=== PATIENT | female | born 1995 | race Hispanic/Latino ===

== ENCOUNTER → 2023-05-10 13:42 | Outpatient (CLI) | payer OTHER, SELFPAY ==
[2023-05-10 19:34] LABS: Creatine Kinase 51 U/L (30-135)
[2023-05-10 20:19] LABS: Vitamin B12 Reflex MMA if <400 295 pg/mL (239-931)
[2023-05-17 02:36] LABS: Methylmalonic Acid,Serum 148 nmol/L (0-378)
== END ==
PROVIDERS: PCP Physician Assistant; Visit Provider Physician Assistant
DX: M54.31 Sciatica, right side (principal); R25.2 Cramp and spasm; M54.32 Sciatica, left side
CPT/HCPCS: 82550; 82607; 83921